=== PATIENT | female | born 1985 | race American Indian/Alaskan Native ===

== ENCOUNTER 2019-04-18 04:52 | Emergency (ER) | payer MEDICAID, OTHER ==
[2019-04-18] MEDS ORDERED: KETOROLAC 30 MG/1 ML INJ ONE (05:23)
[2019-04-18] MEDS ORDERED: HYDROmorphone 1 MG/1 ML INJ ONE (06:54)
[2019-04-18] MEDS ORDERED: BUPIVACAINE/PF (0.5%) 5 MG/1 ML 10 ML VIAL INFILTRATI ONE (06:56)
[2019-04-18 07:56] LABS: BUN/Creatinine Ratio 14; Blood Urea Nitrogen 13 mg/dL (7-17)
[2019-04-18 07:57] LABS: Alanine Aminotransferase 13 units/L (7-56); Albumin 3.1 g/dL (3.9-5); Calcium 8.8 mg/dL (8.4-10.2); Hemolysis Index 7
[2019-04-18] MEDS ORDERED: LIDOCAINE PF 100 MG/5 ML (CARDIAC SYRINGE) IV ONE (08:13)
[2019-04-18] MEDS ORDERED: INSULIN REGULAR, HUMAN 100 UNITS/1 ML IV ONE (08:13)
[2019-04-18] MEDS ORDERED: KETAMINE 500 MG/5 ML VIAL MDV IV ONE (08:13)
--- NOTE | 2019-04-18 08:17 | Emergency Department Report ---
ED General Adult HPI - General Chief complaint: Back Pain/Injury Time Seen by Provider: 04/18/19 07:12 Source: patient, EMS ( EMS documentation not available at time of chart dictation ), RN notes reviewed Mode of arrival: Stretcher Limitations: No Limitations, Physical Limitation - History of Present Illness Initial comments: Primary care DrBishop: Spenser king Past medical history: Morbid obesity, diabetes During patient's history and physical examination, I am shrimp picker and escorted by nurses Marco Alexandre and Gabino Butcher This is a 33-year-old female. This patient is not known to this provider previously. The patient presents to the ER today with complaint of nonstenotic right gluteal pain, thigh pain. This pain has been present for 1 day. It is sharp, aching, throbbing and lightninglike in nature. It does not really radiate anywhere. It increases with palpation, range of motion. It decreases with rest in position. The patient makes no complaint of headache, neck pain, chest pain, abdominal pain or shortness of breath. She denies urinary symptoms. She makes no complaint of extremity weakness or numbness. She makes no complaint of anesthesia or saddle anesthesia. -: Gradual Location: upper extremity, lower extremity Radiation: other Quality: other Consistency: other Improves with: other Worsens with: other Associated Symptoms: other - Related Data Home Medications Medication Instructions Recorded Confirmed Last Taken Insulin NPH Human Isophane See Protocol SQ HS 04/18/19 04/18/19 04/16/19 [Humulin N] glipiZIDE [Glucotrol] 10 mg PO BID 04/18/19 04/18/19 04/17/19 10:00 10 mg Previous Rx's Medication Instructions Recorded Last Taken Type Acetaminophen [Non-Aspirin Extra 500 mg PO Q6HR PRN #30 tablet 04/18/19 Unknown Rx Strength] Ibuprofen [Motrin] 600 mg PO Q8H PRN #30 tablet 04/18/19 Unknown Rx Allergies Allergy/AdvReac Type Severity Reaction Status Date / Time No Known Allergies Allergy Unverified 03/15/15 08:46 ED Review of Systems ROS: Stated complaint: Other details as noted in HPI Constitutional: malaise. denies: fever Eyes: denies: vision change ENT: denies: congestion Respiratory: denies: cough Cardiovascular: denies: chest pain Gastrointestinal: denies: abdominal pain Genitourinary: denies: dysuria Musculoskeletal: arthralgia, myalgia Neurological: denies: numbness, paresthesias Psychiatric: anxiety ED Past Medical Hx - Past Medical History Previous Medical History?: Yes Hx Diabetes: Yes Additional medical history: Vaginal delivery x 1 - Social History Smoking Status: Never Smoker Substance Use Type: Alcohol - Medications Home Medications: Home Medications Medication Instructions Recorded Confirmed Last Taken Type Acetaminophen [Non-Aspirin Extra 500 mg PO Q6HR PRN #30 tablet 04/18/19 Unknown Rx Strength] Ibuprofen [Motrin] 600 mg PO Q8H PRN #30 tablet 04/18/19 Unknown Rx Insulin NPH Human Isophane See Protocol SQ HS 04/18/19 04/18/19 04/16/19 History [Humulin N] glipiZIDE [Glucotrol] 10 mg PO BID 04/18/19 04/18/19 04/17/19 10:00 History 10 mg ED Physical Exam - General Limitations: No Limitations, Physical Limitation General appearance: alert, anxious, obese - Head Head exam: Present: atraumatic, normocephalic - Eye Eye exam: Present: normal appearance, EOMI. Absent: nystagmus - ENT ENT exam: Present: normal exam, normal orophraynx, mucous membranes moist, normal external ear exam - Neck Neck exam: Present: normal inspection, full ROM. Absent: tenderness, meningismus - Respiratory Respiratory exam: Present: normal lung sounds bilaterally. Absent: respiratory distress - Cardiovascular Cardiovascular Exam: Present: regular rate, normal rhythm, normal heart sounds. Absent: bradycardia, tachycardia, irregular rhythm, systolic murmur, diastolic murmur, rubs, gallop - GI/Abdominal GI/Abdominal exam: Present: soft. Absent: distended, tenderness, guarding, rebound, rigid, pulsatile mass - Extremities Exam Extremities exam: Present: normal inspection (chaperoned by Gianfranco Butcher), full ROM, tenderness (there is reproducible point tenderness on multiple aspects of the right gluteal cheek, as well as the right lateral proximal thigh. There is no redness, pus or streaking. Muscular compartments are soft. There is no crepitus.), other (2+ pulses noted in the bilateral upper, lower extremities. There is no long bone tenderness. Musculoskeletal compartments are soft. The pelvis is stable.). Absent: calf tenderness - Back Exam Back exam: Present: normal inspection. Absent: tenderness, CVA tenderness (R), CVA tenderness (L), paraspinal tenderness, vertebral tenderness - Neurological Exam Neurological exam: Present: alert, other (there is no facial droop. The tongue is midline. Extraocular movements are intact bilaterally. Patient speaking in full complete sentences. Shoulder shrug is intact bilaterally. Hearing is grossly intact bilaterally. Visual acuity intact to finger counting and color perception at a close distance. 5/5 strength 4 extremities. Sensation intact to light touch in 4 extremities.). Absent: motor sensory deficit (downgoing plantar reflexes bilaterally.) - Psychiatric Psychiatric exam: Present: normal affect, normal mood - Skin Skin exam: Present: warm, dry, intact, normal color. Absent: rash ED Course Vital Signs 04/18/19 04/18/19 04/18/19 09:08 09:20 09:35 Temperature 98.2 F Pulse Rate 70 73 77 Respiratory 14 15 15 Rate Blood Pressure 126/84 135/93 152/92 [Left] O2 Sat by Pulse 97 96 97 Oximetry 04/18/19 04/18/19 09:40 09:57 Temperature Pulse Rate 80 76 Respiratory 15 16 Rate Blood Pressure 148/97 138/99 [Left] O2 Sat by Pulse 96 Oximetry - Reevaluation(s) Reevaluation #1: 04/18/19 08:59 Differential diagnosis, including but not limited to: Myositis, radiculopathy, muscular skeletal pain, bursitis, fracture, dislocation, sprain, strain, diabet ic neuropathy Assessment and plan: 33-year-old female with a complaint of non traumatic right thigh, and gluteal pain. The patient is afebrile with reassuring vital signs. Her physical examination is not consistent with cellulitis, compartment syndrome or myositis. Her laboratory studies are unremarkable with the exception of hyperglycemia. Her exam is not consistent with epidural compression syndrome. She is moving 4 extremities. She has intact sensation to light touch. X-ray of the hips/pelvis shows no fracture or dislocation. A noncontrast CT scan of the abdomen and pelvis was ordered prior to my evaluation, and was negative for acute emergent disease. Patient has been treated with multiple modalities, including Toradol, hydromorphone, trigger point injection, and intravenous lidocaine will also be ordered, for pain control. However while patient is moving her 4 extremities, and able to move herself laterally, she insists that she cannot stand up or walk. She will benefit from rehabilitation and acute physical therapy evaluation. We will contact her insurance company to arrange this. Reevaluation #2: 04/18/19 09:23 Extensive discussion had with physician coordinator at [facility], Dr. Figueroa Plan is to involve our case management personnel with their case management personnel, and see if the patient can be placed in subacute rehabilitation. If this cannot be done from the emergency room, Dr. Figueroa will arrange transfer to one of her facilities. Case management was updated and informed. Reevaluation #3: 04/18/19 10:23 Patient now able to get up and walk. She is able to weight-bear without significant difficulty. Updated this [place] with case management and [facility] physician coordinator, Dr. Figueroa Patient does not require transfer at this point in time, and can be discharged. [facility] will arrange close outpatient follow-up. Case management will evaluate for physical therapy evaluation and treat. - Procedure Description Procedures done: Patient provided verbal consent for trigger point injection, witnessed by nurse Marco Alexandre. Right gluteal areas of tenderness are identified by palpation, no obvious cellulitis or infection is noted, 3 skin areas are clean sed with typical aseptic technique, and a 26-gauge needle is used to infiltrate total dose 7 mL of 0.5%. bupivicaine, with no obvious complications. The patient tolerated this procedure well. ED Medical Decision Making - Lab Data Result diagrams: 04/18/19 05:20 04/18/19 05:21 Print Report Referring Physician: ALEXX MABRY Patient Name: YAW HILL Date of : 1985 Sex: Female Report Date: 2019-04-18 Report Status: Finalized Findings [facility] [address] [place] [address] XRay Report Signed Patient: YAW HILL MR#: [id number] : 1985 Acct:[id number] Age/Sex: 33 / F ADM Date: 04/18/19 Loc: ED Attending Dr: Ordering Physician: ALEXX MABRY MD Date of Service: 04/18/19 Procedure(s): XR hip 2-3V RT Accession Number(s): [id number] cc: ALEXX MABRY MD Fluoro Time In Minutes: Right hip, 2 views INDICATION: right hip pain. COMPARISON: None. IMPRESSION: No acute osseous or soft tissue abnormality. No significant DJD. Signer Name: Shane Scales Jr, MD Signed: 04/18/2019 8:43 AM Workstation Name: [id number] Transcribed By: TTR Dictated By: SHANE SCALES JR, MD Electronically Authenticated By: SHANE SCALES JR, MD Signed Date/Time: 04/18/[address] ABDOMEN AND PELVIS WITHOUT CONTRAST INDICATION / CLINICAL INFORMATION: Right flank pain. TECHNIQUE: Axial CT images were obtained through the abdomen and pelvis without IV contrast. All CT scans at this location are performed using CT dose reduction for ALARA by means of automated exposure control. COMPARISON: None available. FINDINGS: LOWER CHEST: No significant abnormality. LIVER: No significant abnormality. GALLBLADDER: No significant abnormality. BILE DUCTS: No significant abnormality. PANCREAS: No significant abnormality. SPLEEN: No significant abnormality. ADRENALS: No significant abnormality. RIGHT KIDNEY and URETER: No significant abnormality. LEFT KIDNEY and URETER: No significant abnormality. STOMACH and SMALL BOWEL: No significant abnormality. COLON: No significant abnormality. APPENDIX: No significant abnormality. PERITONEUM: No free fluid. No free air. No fluid collection. LYMPH NODES: Shotty mesenteric and retroperitoneal lymph nodes none of which appear pathologically enlarged. AORTA and ARTERIES: No significant abnormality. 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 URINARY BLADDER: No significant abnormality. REPRODUCTIVE ORGANS: 3.6 x 2.9 cm lesion adjacent to the left ovary with peripheral calcification. This could represent complex cyst. Right ovary and uterus show no significant abnormality. ADDITIONAL FINDINGS: None. SKELETAL SYSTEM: No significant abnormality. IMPRESSION: 1. No inflammatory process or bowel obstruction. 2. No urinary tract stones or hydronephrosis. 3. 3.6 cm left adnexal lesion adjacent to the left ovary possibly representing complex cyst. Follow-up ultrasound pelvis in 6-8 weeks would be helpful. Signer Name: Flor Rothman MD Signed: 04/18/2019 5:51 AM Workstation Name: [id number] - Radiology Data Radiology results: report reviewed, image reviewed X-ray of the pelvis and hip negative for acute disease. CT scan of the pelvis is negative for acute disease CT ABDOMEN AND PELVIS WITHOUT CONTRAST INDICATION / CLINICAL INFORMATION: Right flank pain. TECHNIQUE: Axial CT images were obtained through the abdomen and pelvis without IV contrast. All CT scans at this location are performed using CT dose reduction for ALARA by means of automated exposure control. COMPARISON: None available. FINDINGS: LOWER CHEST: No significant abnormality. LIVER: No significant abnormality. GALLBLADDER: No significant abnormality. BILE DUCTS: No significant abnormality. PANCREAS: No significant abnormality. SPLEEN: No significant abnormality. ADRENALS: No significant abnormality. RIGHT KIDNEY and URETER: No significant abnormality. LEFT KIDNEY and URETER: No significant a bnormality. STOMACH and SMALL BOWEL: No significant abnormality. COLON: No significant abnormality. APPENDIX: No significant abnormality. PERITONEUM: No free fluid. No free air. No fluid collection. LYMPH NODES: Shotty mesenteric and retroperitoneal lymph nodes none of which appear pathologically enlarged. AORTA and ARTERIES: No significant abnormality. 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 URINARY BLADDER: No significant abnormality. REPRODUCTIVE ORGANS: 3.6 x 2.9 cm lesion adjacent to the left ovary with peripheral calcification. This could represent complex cyst. Right ovary and uterus show no significant abnormality. ADDITIONAL FINDINGS: None. SKELETAL SYSTEM: No significant abnormality. IMPRESSION: 1. No inflammatory process or bowel obstruction. 2. No urinary tract stones or hydronephrosis. 3. 3.6 cm left adnexal lesion adjacent to the left ovary possibly representing complex cyst. Follow-up ultrasound pelvis in 6- 8 weeks would be helpful. Signer Name: Flor Rothman MD Signed: 04/18/2019 5:51 AM Workstation Name: [id number] Critical care attestation.: If time is entered above; I have spent that time in minutes in the direct care of this critically ill patient, excluding procedure time. ED Disposition Clinical Impression: Right leg pain, Hyperglycemia, Obesity Disposition: DC-01 TO HOME OR SELFCARE Is pt being admited?: No Does the pt Need Aspirin: No Condition: Stable Additional Instructions: As we discussed, patient found to have musculoskeletal pain in the right gluteal cheek and right thigh, likely coming from muscles and connective tissues in the right lower extremity. Recommend that patient aggressively lose weight, participate in physical activities as tolerated, and consider physical therapy. Patient may take the pain medication as directed, alternate ice packs and heat packs, and should follow up with her primary care doctor within the next week to 10 days. Pain will likely persist for the next few weeks to months, and this kind of pain is typically not dangerous or life-threatening. Please follow up with the primary care doctor within the next week, and return to the emergency room right away with new, worsened or different symptoms not present on the initial emergency room evaluation. Please continue current outpatient home diabetic medications. Patient was found to have high blood sugar while here in the emergency room. Patient is recommended to adhere to a diabetic appropriate diet, she may referentially [place] [employer] website for recommendations. In general, patient should avoid simple carbohydrates, sugary drinks, fried and fatty foods, and should consume plenty of water, fiber, vegetables, and lean protein. Long-term complications of diabetes and obesity may cause disability, paralysis, loss of quality of life, and no risk factors for stroke and for heart disease. Prescriptions: Ibuprofen [Motrin] 600 mg PO Q8H PRN #30 tablet PRN Reason: Pain Acetaminophen [Non-Aspirin Extra Strength] 500 mg PO Q6HR PRN #30 tablet PRN Reason: Pain , Severe (7-10) Referrals: PRIMARY CARE, [Primary Care Provider] - 3-5 Days Forms: Work/School Release Form(ED)
--- NOTE | 2019-04-18 08:47 | XRay Report ---
Right hip, 2 views INDICATION: right hip pain. COMPARISON: None. IMPRESSION: No acute osseous or soft tissue abnormality. No significant DJD. Signer Name: Shane Scales Jr, MD Signed: 04/18/2019 8:43 AM Workstation Name: [id number]
[2019-04-18] MEDS ORDERED: INSULIN REGULAR, HUMAN 100 UNITS/1 ML SUB-Q ONE (08:57)
[2019-04-18] MEDS ORDERED: LIDOCAINE IV ONE (09:00)
[2019-04-18] MEDS ORDERED: SODIUM CHLORIDE 0.9% IV ONE (09:00)
[2019-04-18 09:20] LABS: Basophils % (Auto) 0.4 % (0.0-1.8); Eosinophils % (Auto) 0.3 % (0.0-4.3); Hematocrit 36.4 % (30.3-42.9); Hemoglobin 12.2 gm/dl (10.1-14.3); Lymphocytes # (Auto) 2.2 K/mm3 (1.2-5.4); Lymphocytes % (Auto) 33.2 % (13.4-35.0); Mean Corpuscular HGB Conc 34 % (30-34); Mean Corpuscular Volume 88 fl (79-97); Monocytes # (Auto) 0.5 K/mm3 (0.0-0.8); Monocytes % (Auto) 7.7 % (0.0-7.3); Platelet Count 204 K/mm3 (140-440); Red Blood Count 4.13 M/mm3 (3.65-5.03); Red Cell Distribution Width 13.1 % (13.2-15.2)
[2019-04-18 09:21] LABS: Color,Urine Straw (Yellow)
[2019-04-18 09:22] LABS: Bilirubin,Urine Negative (Negative); Blood,Urine SM (Negative)
[2019-04-18 09:23] LABS: Urobilinogen,Urine < 2.0 mg/dL (<2.0)
[2019-04-18 09:58] VITALS: BP 138/99
--- NOTE | 2019-04-26 16:41 | Cat Scan Report ---
CT ABDOMEN AND PELVIS WITHOUT CONTRAST INDICATION / CLINICAL INFORMATION: Right flank pain. TECHNIQUE: Axial CT images were obtained through the abdomen and pelvis without IV contrast. All CT scans at is location are performed using CT dose reduction for ALARA by means of automated exposure control. COMPARISON: None available. FINDINGS: LOWER CHEST: No significant abnormality. LIVER: No significant abnormality. GALLBLADDER: No significant abnormality. BILE DUCTS: No significant abnormality. PANCREAS: No significant abnormality. SPLEEN: No significant abnormality. ADRENALS: No significant abnormality. RIGHT KIDNEY and URETER: No significant abnormality. LEFT KIDNEY and URETER: No significant abnormality. STOMACH and SMALL BOWEL: No significant abnormality. COLON: No significant abnormality. APPENDIX: No significant abnormality. PERITONEUM: No free fluid. No free air. No fluid collection. LYMPH NODES: Shotty mesenteric and retroperitoneal lymph nodes none of which appear pathologically en larged. AORTA and ARTERIES: No significant abnormality. 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 URINARY BLADDER: No significant abnormality. REPRODUCTIVE ORGANS: 3.6 x 2.9 cm lesion adjacent to the left ovary with peripheral calcification. Th is could represent complex cyst. Right ovary and uterus show no significant abnormality. ADDITIONAL FINDINGS: None. SKELETAL SYSTEM: No significant abnormality. IMPRESSION: 1. No inflammatory process or bowel obstruction. 2. No urinary tract stones or hydronephrosis. 3. 3.6 cm left adnexal lesion adjacent to the left ovary possibly representing complex cyst. Follow-u p ultrasound pelvis in 6-8 weeks would be helpful. Signer Name: Flor Rothman MD Signed: 04/18/2019 6:51 AM Workstation Name: [id number]
== END 2019-04-18 11:04 | disposition home or self-care (01) ==
LOC: ED 04:52
DX: E11.65 Type 2 diabetes mellitus with hyperglycemia (principal); M79.604 Pain in right leg; Z79.899 Other long term (current) drug therapy; E66.01 Morbid (severe) obesity due to excess calories; Z68.42 Body mass index [BMI] 45.0-49.9, adult
CPT/HCPCS: 36415; 73502; 74176; 80053; 81001; 82550; 82962; 84703; 85025; 96365; 96375; 99285; J1170; J1885; J2001; J1815